=== PATIENT | male | born 1995 ===

== ENCOUNTER 2017-03-11 23:49 | Emergency (ER) | payer MEDICAID ==
[~2017-03-11] VITALS: Ht 172.7 cm; Wt 59.9 kg
--- NOTE | 2017-03-12 00:21 | NUR ---
PT IN NO DISTRESS, AAOX4, AMBULATORY. C/O LEFT LOWER TOOTH PAIN FOR 2 DAYS, WORSE TONIGHT.DENIES CP,SOB, CP,N,V, PT PLACED IN BED, BED IN LOWEST POSITION, LOCKED, HOB UP, WILL CONTINUE WITH POC
[2017-03-12 00:38] VITALS: BP 134/79
== END 2017-03-12 00:33 | disposition home or self-care (01) ==
LOC: ER 23:49
DX: K08.89 Other specified disorders of teeth and supporting structures (principal); F17.200 Nicotine dependence, unspecified, uncomplicated
CPT/HCPCS: A4663